=== PATIENT | female | born 1960 | race Caucasian/White ===

== ENCOUNTER 2016-03-29 06:41 | Emergency (ER) | payer OTHER ==
[2016-03-29] MEDS ORDERED: LEVOFLOXACIN 500 MG TAB ONE (07:38)
[2016-03-29] MEDS ORDERED: METRONIDAZOLE 500 MG TAB ONE (07:38)
== END 2016-03-29 07:53 | disposition home or self-care (01) ==
LOC: ER 06:41
DX: J45.909 Unspecified asthma, uncomplicated (principal)
CPT/HCPCS: 36415; 80053; 81001; 83690; 85025